=== PATIENT | male | born 1945 | race African-American/Black ===

== ENCOUNTER 2023-01-08 19:00 | Emergency (ER) | payer MEDICARE ==
[~2023-01-08] VITALS: Ht 167.6 cm; Wt 73.0 kg
[2023-01-08] MEDS ORDERED: KETOROLAC 60MG/2ML VIAL IM ONE (22:30)
[2023-01-08 23:35] LABS: CLARITY URINE CLOUDY (CLEAR); COLOR URINE RED (YELLOW); KETONES URINE NEGATIVE (NEGATIVE); LEUKOCYTE ESTERASE URINE 1+ (NEGATIVE); NITRITE URINE NEGATIVE (NEGATIVE); OCCULT BLOOD URINE 3+ (NEGATIVE); PH URINE 6.5 (4.5-8.0); PROTEIN URINE 4+ (NEGATIVE); SPECIFIC GRAVITY URINE 1.022 (1.005-1.030)
[2023-01-09] MEDS ORDERED: CEPH500C2 MT (02:33)
[2023-01-09] MEDS ORDERED: CEPHALEXIN 250MG CAPSULE PO NR (02:45)
[2023-01-09] MEDS ORDERED: HYDROCODONE/ACETAMINOPHEN 5/325MG TABLET PO ONE (02:45)
[2023-01-09 03:31] VITALS: BP 157/88
== END 2023-01-09 03:40 | disposition home or self-care (01) ==
LOC: ER 19:00 → EDSEX 19:00 → ER 01-09 03:40
DX: N28.89 Other specified disorders of kidney and ureter (principal)
CPT/HCPCS: 74176; 81003; 96372; 99285; J1885